=== PATIENT | male | born 1990 | race Caucasian/White ===

== ENCOUNTER 2019-01-22 15:23 | Outpatient (RCR) | payer OTHER, SELFPAY | END 2019-02-12 00:01 | LOC: SPT 15:23 | PROVIDERS: Family Provider Family Medicine; Visit Provider Family Medicine | DX: M51.24 Other intervertebral disc displacement, thoracic region (principal) | CPT/HCPCS: 97110 ×3; 97161; 97530 ==

== ENCOUNTER 2019-02-13 06:00 | Outpatient (RCR) | payer OTHER, SELFPAY | END 2019-03-15 23:59 | disposition home or self-care (01) | LOC: SPT 06:00 | PROVIDERS: Family Provider Family Medicine; PCP Family Medicine; Visit Provider Family Medicine | DX: M51.24 Other intervertebral disc displacement, thoracic region (principal) | CPT/HCPCS: 97110 ==

== ENCOUNTER 2019-03-16 06:00 | Outpatient (RCR) | payer OTHER, SELFPAY | END 2019-04-13 23:59 | disposition home or self-care (01) | LOC: SPT 06:00 | PROVIDERS: Family Provider Family Medicine; PCP Family Medicine; Visit Provider Family Medicine | DX: M51.24 Other intervertebral disc displacement, thoracic region (principal) | CPT/HCPCS: 97110 ==

== ENCOUNTER → 2020-01-22 10:40 | Outpatient (BNVA) | payer OTHER, SELFPAY | PROVIDERS: Family Provider Family Medicine; PCP Family Medicine; Visit Provider Nurse Practitioner | DX: S46.912A Strain of unspecified muscle, fascia and tendon at shoulder and upper arm level, left arm, initial encounter (principal); X58.XXXA Exposure to other specified factors, initial encounter | CPT/HCPCS: 73030 ==

== ENCOUNTER 2022-04-12 12:51 | Outpatient (CLI) | payer MEDICAID, SELFPAY ==
--- NOTE | 2022-04-12 13:04 | USCV_ITS ---
Ever Jha Age: 31 Gender: M : 1990 Exam Date: 04/12/2022 13:17 Ordering Phys: Randy Gillespie MD Technologist: [place] [facility] [place]: CHEST DISCOMFORT BP: 138 / 98 HR: 82 Rhythm: Sinus Technical Quality: Adequate MEASUREMENTS (Male / Female) Normal Values 2D ECHO LV Diastolic Diameter PLAX 5.0 cm 4.2 - 5.9 / 3.9 - 5.3 cm LV Systolic Diameter PLAX 3.3 cm IVS Diastolic Thickness 1.3 cm 0.6 - 1.0 / 0.6 - 0.9 cm IVS Systolic Thickness 1.4 cm LVPW Diastolic Thickness 1.0 cm 0.6 - 1.0 / 0.6 - 0.9 cm LVPW Systolic Thickness 1.4 cm LVOT Diameter 2.2 cm LV Ejection Fraction 2D Teich 62.3 % LA Diameter 3.8 cm Aorta at Sinotubular Diameter 2.7 cm IVC Diameter 1.3 cm M-MODE Aortic Annulus Diameter 3.3 cm LA Ao Ratio MM 1.1 MV E Point Septal Separation 1.5 cm DOPPLER AV Peak Velocity 121.0 cm/s LVOT Peak Velocity 100.0 cm/s AV Area Cont Eq vti 4.3 cm squared AV Area Cont Eq pk 3.3 cm squared MV Area PHT 3.7 cm squared Mitral E to A Ratio 1.1 MV E' Velocity 41.5 cm/s Mitral E to MV E' Ratio 5.4 Mitral E to LV E' Lateral Ratio 4.6 Mitral E to LV E' Septal Ratio 6.5 TR Peak Velocity 237.0 cm/s TR Peak Gradient 22.5 mmHg TV Peak E Velocity 107.0 cm/s Right Atrial Pressure 3.0 mmHg Pulmonary Artery Systolic Pressu 25.5 mmHg RV Acceleration Time 0.1 s FINDINGS Left Ventricle Normal left ventricular size and systolic function, EF 62%.no regional wall motion abnormalities. Right Ventricle The right ventricle is normal in size and function. Right Atrium The right atrium is normal in size. Left Atrium The left atrium is normal in size. Mitral Valve No gross abnormalities noted Aortic Valve No gross abnormalities noted Tricuspid Valve No gross abnormalities noted Pulmonic Valve No gross abnormalities noted Pericardium Normal pericardium without effusion. Aorta Normal ascending aorta dimension. IVC The inferior vena cava appears normal. CONCLUSIONS Normal left ventricular size and systolic function, EF 62%.no regional wall motion abnormalities. Normal cardiac chamber sizes. No intracardiac shunts, by color-flow Doppler examination. No significant valvular lesions. There is no pericardial effusion. There are no intracardiac masses. No similar previous studies are available for comparison Dr Lisa Jernigan MD FAC (Electronically Signed) Final Date: 13 April 2022 10:23 S
== END 2022-04-12 12:52 | disposition home or self-care (01) ==
LOC: RAD 12:52
PROVIDERS: PCP Family Medicine; Visit Provider Family Medicine
DX: R07.89 Other chest pain (principal)
CPT/HCPCS: 93306

== ENCOUNTER → 2022-05-06 09:32 | Outpatient (BNVA) | payer MEDICAID, SELFPAY | PROVIDERS: PCP Family Medicine; Visit Provider Podiatrist Foot & Ankle Surgery | DX: G89.29 Other chronic pain (principal); M25.371 Other instability, right ankle; M77.51 Other enthesopathy of right foot and ankle; M25.571 Pain in right ankle and joints of right foot; M25.572 Pain in left ankle and joints of left foot | CPT/HCPCS: 73610 ==

== ENCOUNTER 2023-01-17 17:19 | Emergency (ER) | payer SELFPAY ==
[2023-01-17 17:21] VITALS: BP 170/100; PULSE 77; RESP 18; TEMP 36.5; O2SAT 99; BMI 36.1
--- NOTE | 2023-01-17 18:03 | XRR_ITS ---
PROCEDURE INFORMATION: Exam: XR Cervical Spine Exam date and time: 01/17/2023 6:11 PM Age: 32 years old Clinical indication: Neck pain; Additional info: RT neck pain, RT neck, radiating to right shoulder/arm TECHNIQUE: Imaging protocol: Radiologic exam of the cervical spine. Views: 2 or 3 views. COMPARISON: CR XR cervical spine 3V* [id number] 12/23/2018 3:43 PM FINDINGS: Bones/joints: No fracture or other acute abnormality. Vertebral body and disc space heights are normal. Posterior elements are unremarkable. There is straightening of the cervical lordosis but otherwise normal alignment. Soft tissues: Unremarkable. XR/XR cervical spine 3V* [id number] IMPRESSION: No acute findings. No significant change.
--- NOTE | 2023-01-17 18:50 | ED_ITS ---
HPI - Neck Pain/Injury General: Chief Complaint: Neck Pain/Injury Stated Complaint: hurt neck Time Seen by Provider: 01/17/23 18:41 Source: patient Mode of arrival: ambulatory Limitations: no limitations History of Present Illness: 32-year-old male states he has had neck pain over the last week. States pains down his right side with some pain that shoots down to his arms at times. States he had a herniated disc in his back he denies any fevers denies any known injuries rates his pain a 3 out of 10 currently is improved with rest. Associated symptoms: Denies headache(s) or nausea Review of Systems Const: Denies: fever(s) or chills ENMT: Denies: throat pain or dental pain Card: Denies: chest pain Resp: Denies: dyspnea GI: Denies: abdominal pain, nausea, vomiting or diarrhea Musc: Reports: neck pain; Denies: back pain Skin/Breast: Denies: rash Neuro: Denies: headache(s) Psych: Denies: depression PFSH ED PFSH: Medical History History of back injury Disc displacement, thoracic Surgical History History of shoulder surgery left Family History Father Heart disease Social History Smoking and tobacco/nicotine status: never used tobacco/nicotine Alcohol intake: current Substance/Drug Use: never Lives independently: Yes Household members: spouse and children Housing: House Marital status: service: No Current occupational status: employed 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, [employer] Physical Exam Const: COMMON NORMALS: no acute distress, patient oriented x3 and healthy appearing HENMT: COMMON NORMALS: normocephalic and atraumatic HEAD & SCALP: normocephalic and atraumatic Eye: COMMON NORMALS: Equal, round and reactive pupils present and EOMs intact bilaterally PUPIL: Yes Equal, round and reactive pupils present Neck/C-Spine: COMMON NORMALS: full ROM and supple CERVICAL SPINE: Yes cervical ROM normal, No pain with cervical ROM and No Cervical spine tenderness Chest: COMMONS NORMALS: normal inspection of the chest Resp: COMMON NORMALS: normal respiratory effort Extremity: COMMON NORMALS: normal to inspection and full ROM Neuro: COMMON NORMALS: patient oriented x3, moves all extremities and no focal motor deficits Psych: COMMON NORMALS: mental status grossly normal, Normal thought process present and cooperative THOUGHT PROCESS: Normal thought process present Skin: COMMON NORMALS: no rashes or lesions noted and no wounds GENERAL SKIN EXAM: no rashes or lesions noted Course Vital Signs: Vital signs: Vital Signs Temperature 97.7 F 01/17/23 17:21 Pulse Rate 77 01/17/23 17:21 Respiratory Rate 18 01/17/23 17:21 Blood Pressure 170/100 01/17/23 17:21 Pulse Oximetry 99 01/17/23 17:21 Oxygen Delivery Me thod Room Air 01/17/23 17:21 MDM - Neck Pain/Injury Medical Decision Making 32-year-old male presents here with neck pain x-ray here is normal his exam here is benign no fever no signs of meningitis he is to follow-up his PCP we will place him on Flexeril he is return if worsening he understands agrees to plan. Medical Records I reviewed the patient's medical records. Lab Data Radiology Impressions Cervical Spine X-Ray 01/17/23 18:03 IMPRESSION: No acute findings. No significant change. All radiology interpretation(s) finalized by discharge Discharge Plan Discharge Patient Disposition: Home Clinical Impression: Neck pain Condition: Stable Prescriptions: New cyclobenzaprine 10 mg tablet 10 mg PO BID PRN (Reason: muscle spasm) Qty: 14 0RF No Action albuterol sulfate [Proventil HFA] 90 mcg/actuation HFA aerosol inhaler 2 puff INHALATION Q4H PRN diclofenac sodium 75 mg tablet,delayed release (DR/EC) 75 mg PO BID PRN (Reason: pain) Qty: 30 0RF famotidine 10 mg tablet 40 mg PO BID 5 Days Qty: 40 0RF diphenhydramine HCl [Allergy (diphenhydramine)] 25 mg capsule 25 mg PO TID PRN (Reason: rash) 3 Days Qty: 20 0RF diclofenac sodium 75 mg tablet,delayed release (DR/EC) See Rx Instructions .ROUTE .COMPLEX Qty: 30 0RF Dose Instruction: Take 1 tablet by mouth twice daily as needed for pain Rx Instructions: Take 1 tablet by mouth twice daily as needed for pain Discharge Orders: Discharge ED (Routine); Ordered 01/17/23 Ordered By: Noris Jeter Referrals: Randy Gillespie MD [Primary Care Provider] - 1-3 days Discharge Diet: Advance as tolerated Discharge Activity: Resume usual activity Patient Instructions: Neck Pain (ED) Coding Level of Care Code ED Sports Internship for Conchita Florez
[2023-01-17] MEDS: ketorolac 30 mg/mL INJ IM (18:54)
[2023-01-17] MEDS: dexamethasone 10 mg/mL INJ IM (18:55)
[2023-01-17 19:13] VITALS: BP 177/97; PULSE 88; RESP 18; O2SAT 99
== END 2023-01-17 19:30 | disposition home or self-care (01) ==
PROVIDERS: Emergency Provider Emergency Medicine; PCP Family Medicine
DX: M54.2 Cervicalgia (principal)
CPT/HCPCS: 72040; 96372; 99284; J1100; J1885

== ENCOUNTER 2023-02-28 11:54 | Outpatient (CLI) | payer OTHER, SELFPAY ==
--- NOTE | 2023-02-28 12:00 | MR_ITS ---
WS: [id number] MRI CERVICAL SPINE NONCONTRAST TECHNIQUE: Sagittal T1, T2 and STIR imaging. Axial T2, gradient, and fiesta imaging. CLINICAL INFORMATION: CERVICAL RADICULOPATHY COMPARISON: None. FINDINGS: Straightening of the normal cervical lordosis. Disc bulging worse at C5-C6 and C6-C7. C2-C3: Normal. C3-C4: Normal. C4-C5: Mild disc osteophytic ridging. Slight effacement of ventral thecal sac. Mild LEFT greater than RIGHT bony foraminal narrowing. Mild facet arthropathy. Spinal canal is patent. C5-C6: Large RIGHT subarticular and proximal foraminal disc protrusion with slight contact of the RIG HT ventral cervical cord. Mild central canal stenosis. Moderate to severe RIGHT foraminal narrowing. Mild LEFT foraminal narrowing. Mild facet arthropathy. C6-C7: Mild disc bulging with osteophytic ridging. Spinal canal is patent. Foramen are patent. Mild f acet arthropathy. C7-T1: Spinal canal and foramen are patent. Visualized brain stem structures: Normal. Prevertebral soft tissues: Normal. Partially visualized retention cyst in the sphenoid sinus. IMPRESSION: 1. Straightening the normal cervical lordosis. Cord signal is normal. 2. Large RIGHT C5-6 subarticular and proximal foraminal disc protrusion. Mild central canal stenosis with slight contact of the cervical cord. Severe RIGHT foraminal narrowing. Recommend spine surgery consultation. 3. Mild disc bulging C6-7. 4. Mild bilateral C4-5 bony foraminal narrowing. 5. No other acute findings.
== END 2023-02-28 11:55 | disposition home or self-care (01) ==
LOC: RAD 11:56
PROVIDERS: PCP Family Medicine; Visit Provider Family Medicine
DX: M50.122 Cervical disc disorder at C5-C6 level with radiculopathy (principal); M48.02 Spinal stenosis, cervical region; M50.323 Other cervical disc degeneration at C6-C7 level
CPT/HCPCS: 72141

== ENCOUNTER → 2023-03-27 10:48 | Outpatient (BNVA) | payer OTHER, SELFPAY | PROVIDERS: PCP Family Medicine; Visit Provider Internal Medicine Rheumatology | DX: M19.90 Unspecified osteoarthritis, unspecified site (principal); Z79.899 Other long term (current) drug therapy; Z79.1 Long term (current) use of non-steroidal anti-inflammatories (NSAID); Z71.85 Encounter for immunization safety counseling | CPT/HCPCS: 73130; 73630 ==

== ENCOUNTER → 2023-07-11 16:45 | Outpatient (BNVA) | payer OTHER, SELFPAY | PROVIDERS: PCP Family Medicine; Visit Provider Internal Medicine Rheumatology | DX: M19.90 Unspecified osteoarthritis, unspecified site (principal); Z79.899 Other long term (current) drug therapy; M79.672 Pain in left foot; G89.29 Other chronic pain; Z71.85 Encounter for immunization safety counseling; Z79.1 Long term (current) use of non-steroidal anti-inflammatories (NSAID) | CPT/HCPCS: 36415; 80076; 82565; 85025; 85651; 86140 ==

== ENCOUNTER 2023-12-03 11:32 | Emergency (ER) | payer OTHER, SELFPAY ==
[2023-12-03 12:06] VITALS: BP 123/89; PULSE 83; TEMP 36.7; O2SAT 99; BMI 39.4
--- NOTE | 2023-12-03 12:39 | ED_ITS ---
HPI - Neck Pain/Injury General: Chief Complaint: Neck Pain/Injury Stated Complaint: Neck pain, inflammation, limited motion Time Seen by Provider: 12/03/23 12:32 History of Present Illness: 33-year-old man with a history of chroni c neck issues with slipped disks who follows with orthopedics and [facility]. He had run out of diclofenac. He is had worsening pain. No saddle numbness, no urinary retention or incontinence, no focal motor deficit, no sensory deficit. no recent fever. no cough. no shortness of breath. no chest pain. no abdominal pain. no nausea or vomiting. no dysuria. no altered mental status. no edema. Related Data Home Medications Medication Instructions Recorded Confirmed albuterol sulfate 90 mcg/actuation 2 puff inhalation Q4H PRN 03/22/19 10/27/23 aerosol inhaler (Proventil HFA) Previous Rx's Medication Instructions Recorded diclofenac sodium 75 mg See Rx Instructions .Route 09/26/22 tablet,delayed release .COMPLEX #30 tabs hydroxychloroquine 200 mg tablet 200 mg PO BID #180 tabs 07/11/23 prednisone 20 mg tablet 20 mg PO DAILY #5 tabs 10/27/23 cyclobenzaprine 10 mg tablet 10 mg PO Q8H PRN muscle spasm #20 12/03/23 tabs diclofenac sodium 50 mg 50 mg PO BID PRN pain #14 tabs 12/03/23 tablet,delayed release hydrocodone 5 mg-acetaminophen 325 1 tab PO Q8H PRN pain #14 tabs 12/03/23 mg tablet polyethylene glycol 3350 17 17 g PO DAILY #510 grams 12/03/23 gram/dose oral powder (Miralax) prednisone 20 mg tablet 60 mg (3 x 20 mg) PO DAILY #20 tabs 12/03/23 Allergies Allergy/AdvReac Type Severity Reaction Status Date / Time Sulfa (Sulfonamide Allergy Intermediate ALGY-Hives Verified 12/03/23 12:13 Antibiotics) Review of Systems Narrative: Constitutional symptoms: Negative except as documented in HPI. Skin symptoms: Negative except as documented in HPI. Eye symptoms: Negative except as documented in HPI. ENMT symptoms: Negative except as documented in HPI. Respiratory symptoms: Negative except as documented in HPI. Cardiovascular symptoms: Negative except as documented in HPI. Gastrointestinal symptoms: Negative except as documented in HPI. Genitourinary symptoms: Negative except as documented in HPI. Musculoskeletal symptoms: Negative except as documented in HPI. Neurologic symptoms: Negative except as documented in HPI. Psychiatric symptoms: Negative except as documented in HPI. Endocrine symptoms: Negative except as documented in HPI. PFSH ED PFSH: Medical History (Updated 12/03/23 @ 12:35 by Mara Granados MD) Psychiatric care NSAID long-term use Immunization counseling High risk medication use Inflammatory arthritis Asthma Vasectomy evaluation GERD (gastroesophageal reflux disease) Joint pain History of back injury Disc displacement, thoracic Surgical History History of arthroscopic surgery of shoulder History of elbow surgery History of appendectomy History of shoulder surgery left Family History Father Heart disease Other Cancer Diabetes Hypertension Rheumatoid arthritis Denies family history of Lupus (systemic lupus erythematosus) CAD (coronary artery disease) Hyperthyroidism Kidney stones Chronic kidney disease (CKD) Lung disease Social History Smoking and tobacco/nicotine status: never used tobacco/nicotine Alcohol intake: current Substance/Drug Use: never Lives independently: Yes Household members: spouse and children Housing: House Marital status: service: No Current occupational status: employed 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 Skin: warm and dry Head: Normocephalic Neck: Trachea midline, patient has some pain with movement. Eye: Extraocular movements are intact. Ears, nose, mouth and throat: Oral mucosa moist Respiratory: Respirations are non-labored Musculoskeletal: Normal ROM Neurological: Alert and oriented, No focal neurological deficit observed. Psychiatric: Cooperative, appropriate mood & affect. Course Vital Signs: Vital signs: Vital Signs Temperature 98.0 F 12/03/23 12:06 Pulse Rate 83 12/03/23 12:06 Blood Pressure 123/89 12/03/23 12:06 Pulse Oximetry 99 12/03/23 12:06 Oxygen Delivery Me thod Room Air 12/03/23 12:06 MDM - Neck Pain/Injury Medical Decision Making Assessment and plan: Chronic neck pain ?IM Toradol, IM Decadron, IM Norflex and a p.o. Derby in the emergency room. - Discharged home - Discussed plan with patient. Answered any questions. - Evaluation and treatment of this problem were appropriate in the emergency setting. No radiology studies performed this visit Discharge Plan Discharge Patient Disposition: Home Clinical Impression: Cervical radiculopathy Condition: Stable Prescriptions: New cyclobenzaprine 10 mg tablet 10 mg PO Q8H PRN (Reason: muscle spasm) Qty: 20 0RF hydrocodone-acetaminophen 5-325 mg tablet 1 tab PO Q8H PRN (Reason: pain) Qty: 14 0RF Rx Instructions: Take 1/2 to 1 tab every 8 hours as needed for pain prednisone 20 mg tablet 60 mg PO DAILY Qty: 20 0RF Rx Instructions: 3 tabs (60 mg) x 3 days. 2 tabs (40 mg) x 3 days. 1 tab (20 mg) x 3 days. 1/2 tab (10 mg) x 4 days diclofenac sodium 50 mg tablet,delayed release (DR/EC) 50 mg PO BID PRN (Reason: pain) Qty: 14 0RF polyethylene glycol 3350 [Miralax] 17 gram/dose powder 17 g PO DAILY Qty: 510 0RF Rx Instructions: Take 1 scoop daily while taking pain medications. No Action albuterol sulfate [Proventil HFA] 90 mcg/actuation HFA aerosol inhaler 2 puff INHALATION Q4H PRN hydroxychloroquine 200 mg tablet 200 mg PO BID Qty: 180 3RF prednisone 20 mg tablet 20 mg PO DAILY Qty: 5 0RF diclofenac sodium 75 mg tablet,delayed release (DR/EC) See Rx Instructions .ROUTE .COMPLEX Qty: 30 0RF Dose Instruction: Take 1 tablet by mouth twice daily as needed for pain Rx Instructions: Take 1 tablet by mouth twice daily as needed for pain Discharge Orders: Discharge ED (Routine); Ordered 12/03/23 Ordered By: Mara Granados Referrals: Randy Gillespie MD [Primary Care Provider] - Discharge Diet: Usual diet Discharge Activity: Increase activity as tolerated Patient Instructions: Opioid Safety, Pain Management Activity Restrictions/Additional Instructions: Thank you for choosing [facility] for your healthcare needs today. Please realize this is an emergency room and that we are providing you with a medical screening exam and this may not be complete and all inclusive of all the testing and or work up that you may need to determine your ailment or severity of your illness. You have been screened and evaluated and felt safe for discharge. Health conditions do change or evolve sometimes and as such it is important that you follow up with your Primary Doctor to be re checked, 3-5 days is a general good time frame for follow up. You are always welcome to return to the ED for re assessment if your symptoms are worsening or you have new concerns Coding Level of Care Code ED Research Group Director for Conchita Florez
[2023-12-03] MEDS: HYDROcodone-acetaminophen 5-325 mg Tablet 1 TAB PO (12:45)
[2023-12-03] MEDS: ketorolac 60 mg/2 mL INJ IM (12:46)
[2023-12-03] MEDS: orphenadrine 30 mg/mL Inj 2 mL 60 MG IM (12:49)
[2023-12-03] MEDS: dexamethasone 10 mg/mL INJ IM (12:51)
[2023-12-03 13:28] VITALS: BP 121/90; PULSE 81; O2SAT 98
== END 2023-12-03 13:34 | disposition home or self-care (01) ==
PROVIDERS: Emergency Provider Emergency Medicine; PCP Family Medicine
DX: M54.12 Radiculopathy, cervical region (principal)
CPT/HCPCS: 96372; 99284; J1100; J1885; J2360

== ENCOUNTER 2024-03-25 07:43 | Outpatient (CLI) | payer OTHER, SELFPAY ==
[2024-03-25 08:27] LABS: Alanine Aminotransferase 58 U/L (0-41); Albumin Level 4.5 g/dL (3.5-5.2); Alkaline Phosphatase 78 U/L (40-130); Aspartate Amino Transferase 26 U/L (0-40); Blood Urea Nitrogen 11 mg/dL (6-20); Calcium 9.4 mg/dL (8.5-10.5); Carbon Dioxide 29 mmol/L (22-29); Chloride 101 mmol/L (98-107); Chol HDL Ratio 6.61 mg/dL (1.0-5.00); Cholesterol 185 mg/dL (0-200); Globulin 2.8 g/dL (1.3-4.6); Glomerular Filtration Rate 86.6 mL/min (90-130); Glucose 95 mg/dL (65-115); HDL Cholesterol 28 mg/dL (60-100); LDL Cholesterol Calculated 116 mg/dL (50-129); LDL HDL Ratio 4.14 RATIO (0.00-3.22); Osmolality Calculated 287 mOsm/kg (285-295); Sodium 139 mmol/L (136-145); Total Bilirubin 0.7 mg/dL (0.15-1.2); Total Protein 7.3 g/dL (6.6-8.7); Triglycerides 204 mg/dL (0-150)
[2024-03-25 08:28] LABS: Creatinine Urine, Random 154 mg/dL (39-259); Microalbum Creatinine Ratio Ur 6 mg/dL (0-20); Microalbumin Random Urine 1 ug/dL (0-20)
[2024-03-25 08:30] LABS: Estmated Average Glucose 103; Hemoglobin A1C 5.2 % (4.0-6.0)
[2024-03-25 08:33] LABS: Testosterone Total 241.7 ng/dL (249-836)
== END 2024-03-25 07:44 | disposition home or self-care (01) ==
LOC: LAB 07:45
PROVIDERS: PCP Family Medicine; Visit Provider Internal Medicine
DX: K21.9 Gastro-esophageal reflux disease without esophagitis (principal); Q79.60 Ehlers-Danlos syndrome, unspecified; Z83.3 Family history of diabetes mellitus; E66.9 Obesity, unspecified
CPT/HCPCS: 36415; 80053; 80061; 82044; 83036; 84403

== ENCOUNTER 2024-09-10 11:13 | Outpatient (CLI) | payer OTHER, SELFPAY | END 2024-09-10 11:14 | disposition home or self-care (01) | LOC: SLEEP 11:15 | PROVIDERS: PCP Family Medicine; Visit Provider Internal Medicine Pulmonary Disease | DX: G47.33 Obstructive sleep apnea (adult) (pediatric) (principal); G47.36 Sleep related hypoventilation in conditions classified elsewhere | CPT/HCPCS: G0399 ==

== ENCOUNTER 2024-09-11 07:22 | Outpatient (CLI) | payer OTHER, SELFPAY ==
[2024-09-11 07:46] LABS: Hematocrit 47.1 % (37-53); Hemoglobin 15.70 g/dL (11.27-16.99); Mean Corpuscular HGB Conc 33.3 g/dL (30-55); Mean Corpuscular Hemoglobin 27.9 pg (27-33); Mean Corpuscular Volume 83.7 fl (82-101); Nucleated Red Blood Cells % 0 %; Platelet Count 251 10^3/cmm (157-399); Red Blood Count 5.63 10^6/uL (3.85-5.65); White Blood Count 8.98 10^3/uL (3.29-11.43)
[2024-09-11 08:08] LABS: Alanine Aminotransferase 55 U/L (0-41); Albumin Level 4.1 g/dL (3.5-5.2); Alkaline Phosphatase 75 U/L (40-130); Anion Gap 15.0 (5-19); Aspartate Amino Transferase 25 U/L (0-40); Blood Urea Nitrogen 13 mg/dL (6-20); Calcium 8.7 mg/dL (8.5-10.5); Carbon Dioxide 26 mmol/L (22-29); Chloride 104 mmol/L (98-107); Cholesterol 169 mg/dL (0-200); Globulin 2.7 g/dL (1.3-4.6); Glucose 92 mg/dL (65-115); HDL Cholesterol 26 mg/dL (60-100); Osmolality Calculated 292 mOsm/kg (285-295); Potassium 4.0 mmol/L (3.5-5.1); Sodium 141 mmol/L (136-145); Total Protein 6.8 g/dL (6.6-8.7); Triglycerides 228 mg/dL (0-150)
[2024-09-11 08:15] LABS: Follicle Stimulating Hormone 1.0 mIU/mL (1.5-12.4)
[2024-09-13 12:49] LABS: Prostate Specific Antigen 0.688 ng/mL (0-4)
== END 2024-09-11 07:23 | disposition home or self-care (01) ==
LOC: LAB 07:22
PROVIDERS: PCP Family Medicine; Visit Provider Internal Medicine
DX: E11.9 Type 2 diabetes mellitus without complications (principal); Z12.5 Encounter for screening for malignant neoplasm of prostate
CPT/HCPCS: 36415; 80053; 80061; 83001; 83002; 84146; 84153; 84403; 85025

== ENCOUNTER 2024-11-05 07:19 | Outpatient (CLI) | payer OTHER, SELFPAY ==
[2024-11-05 08:25] LABS: Hematocrit 48.3 % (37-53); Hemoglobin 15.90 g/dL (11.27-16.99); Mean Corpuscular HGB Conc 32.9 g/dL (30-55); Mean Corpuscular Hemoglobin 27.8 pg (27-33); Mean Corpuscular Volume 84.4 fl (82-101); Nucleated Red Blood Cells % 0 %; Platelet Count 254 10^3/cmm (157-399); Red Blood Count 5.72 10^6/uL (3.85-5.65); White Blood Count 9.81 10^3/uL (3.29-11.43)
[2024-11-05 08:57] LABS: Alanine Aminotransferase 67 U/L (0-41); Albumin Level 4.3 g/dL (3.5-5.2); Alkaline Phosphatase 74 U/L (40-130); Anion Gap 14.0 (5-19); Aspartate Amino Transferase 32 U/L (0-40); Blood Urea Nitrogen 12 mg/dL (6-20); Calcium 8.9 mg/dL (8.5-10.5); Carbon Dioxide 26 mmol/L (22-29); Chloride 104 mmol/L (98-107); Globulin 2.8 g/dL (1.3-4.6); Glucose 99 mg/dL (65-115); Osmolality Calculated 290 mOsm/kg (285-295); Potassium 4.0 mmol/L (3.5-5.1); Prostate Specific Antigen 0.751 ng/mL (0-4); Sodium 140 mmol/L (136-145); Total Protein 7.1 g/dL (6.6-8.7)
[2024-11-05 19:41] LABS: Cholesterol 194 mg/dL (0-200); HDL Cholesterol 26 mg/dL (60-100); Triglycerides 156 mg/dL (0-150)
== END 2024-11-05 07:20 | disposition home or self-care (01) ==
PROVIDERS: PCP Family Medicine; Visit Provider Internal Medicine
DX: R79.89 Other specified abnormal findings of blood chemistry (principal)
CPT/HCPCS: 36415; 80053; 80061; 84153; 84403; 85025

== ENCOUNTER 2025-01-08 08:28 | Outpatient (CLI) | payer OTHER, SELFPAY ==
--- NOTE | 2025-01-08 08:37 | MRR_ITS ---
PROCEDURE INFORMATION: Exam: MR Left Upper Extremity Joint Without Contrast; Shoulder Exam date and time: 01/08/2025 8:50 AM Age: 34 years old Clinical indication: Prior surgery; Surgery date: 6+ months; Surgery type: Left shoulder; History of carmita-danlos syndrome/repair of superior labrum tear in 2013/patient states a couple of weeks ago he has laying in bed and had a sharp shoulder pain/limited rom and pain since; Additional info: Pain in left shoulder TECHNIQUE: Imaging protocol: Magnetic resonance imaging of the left upper extremity without contrast. Exam focused on the shoulder. COMPARISON: CR XR shoulder LT min 2V* [id number] 01/22/2020 10:43 AM FINDINGS: Bones/joints: A few subchondral geodes in the humeral head rotator cuff footplate attachment. Type 1 acromion. Acromioclavicular joint is unremarkable. Glenoid cartilage with mild heterogeneous signal, most prominently noted focally subjacent to the humeral head/neck osteophyte (image 9 series 601, image 13 series 601). Glenoid labrum: Postsurgical changes of prior repair of the anterior labrum, most prominently from 7:00 to 10:00. The anterior labrum is heterogeneous, thickened and torn/fragmented from superior to inferior. scattered fragments with adjacent scarring are present within the (mildly widened anterior) glenohumeral joint space, for example 3 x 3 mm fragment on image 10 series 401, 2 x 3 mm fragment more caudally. Posterior labrum is unremarkable. Supraspinatus tendon: Mild tendinosis of the supraspinatus tendon, without distinct tear. Mild bursal sided fraying. Infraspinatus tendon: Mild tendinosis of the infraspinatus tendon, without distinct tear. Mild bursal sided fraying. Subscapularis tendon: Mild tendinosis of the subscapularis tendon, without distinct tear. Teres minor tendon: Unremarkable. No evidence of tear. Tendon of biceps brachii: Extra-articular biceps is unremarkable. Intra-articular biceps with mild tendinosis. Glenohumeral ligaments: Unremarkable. Soft tissues: Mild thickening of the axillary pouch with trace recess fluid. Nonspecific. Otherwise, no acute soft tissue abnormality. MR/MR shoulder LT wo con* [id number] IMPRESSION: 1. The anterior labrum is heterogeneous, thickened and torn/fragmented from superior to inferior. Scattered fragments with adjacent scarring are present within the (mildly widened anterior) glenohumeral joint space, likely contributing to described symptoms. 2. Mild tendinosis of the rotator cuff tendons without tear. 3. Postsurgical changes of prior repair of the anterior labrum.
== END 2025-01-08 08:29 | disposition home or self-care (01) ==
LOC: RAD 08:29
PROVIDERS: PCP Family Medicine; Visit Provider Family Medicine
DX: M25.512 Pain in left shoulder (principal); S43.432S Superior glenoid labrum lesion of left shoulder, sequela; X58.XXXS Exposure to other specified factors, sequela; M75.102 Unspecified rotator cuff tear or rupture of left shoulder, not specified as traumatic
CPT/HCPCS: 73221